=== PATIENT | female | born 1955 | race Caucasian/White ===

== ENCOUNTER 2017-08-24 23:21 | Inpatient (IN) | payer BC, OTHER ==
[~2017-08-24] VITALS: Ht 177.8 cm; Wt 88.5 kg
[2017-08-24 23:27] VITALS: BP 131/70
[2017-08-24] MEDS ORDERED: ATIVAN0.5 MG PO (23:33)
[2017-08-24] MEDS ORDERED: AMBIEN 5 MG TABL5 M1 PO (23:33)
[2017-08-24] MEDS ORDERED: ATENOLOL 25 MG25 M1 PO (23:33)
[2017-08-25 00:11] LABS: URINE BILIRUBIN NEGATIVE (Negative); URINE BLOOD 1+ (Negative); URINE COLOR YELLOW; URINE GLUCOSE-RANDOM* NEGATIVE (Negative); URINE KETONES NEGATIVE (Negative); URINE PROTEIN (DIPSTICK) NEGATIVE (Negative); URINE SPECIFIC GRAVITY <= 1.005 (1.005-1.035); URINE UROBILINOGEN 0.2 E.U./dl (0.2-1.0)
[2017-08-25 00:12] LABS: URINE LEUKOCYTES-REFLEX TRACE (Negative)
[2017-08-25 00:17] LABS: CASTS None Seen /LPF (None Seen); SQUAMOUS None Seen /LPF (0-3); URINE WBC-REFLEX None Seen /HPF (0-5)
[2017-08-25 00:18] LABS: CRYSTALS None Seen /LPF (None Seen); URINE RBC 0-2 Rare /HPF (0-2)
[2017-08-25 00:44] LABS: HEMATOCRIT 44.8 % (37.0-47.0); HEMOGLOBIN 15.2 gm/dL (12.0-15.0); MCH 29.8 pg (26.0-34.0); MCHC 33.9 g/dL (28.0-37.0); MCV 87.9 fL (80.0-100.0); RBC 5.09 mil/uL (4.20-5.00); RDW 13.1 % (10.5-14.5); WBC 9.7 thou/uL (4.0-11.0)
[2017-08-25 00:56] LABS: CALCIUM 9.8 mg/dL (8.5-10.1); CREATININE 1.3 mg/dL (0.6-1.0); POTASSIUM 3.9 mmol/L (3.5-5.1)
[2017-08-25 01:01] LABS: ALBUMIN 3.8 g/dL (3.4-5.0); TOTAL BILIRUBIN 1.1 mg/dL (<0.1-1.0); TOTAL PROTEIN 7.7 g/dL (6.4-8.2)
[2017-08-25 02:29] VITALS: BP 114/71
[2017-08-25 04:02] VITALS: BP 132/75
[2017-08-25 07:22] VITALS: BP 103/59
[2017-08-25 16:37] VITALS: BP 111/68
[2017-08-25 20:00] VITALS: BP 109/58
[2017-08-26 04:04] LABS: ALBUMIN 3.2 g/dL (3.4-5.0); CALCIUM 9.2 mg/dL (8.5-10.1); CREATININE 1.2 mg/dL (0.6-1.0); PHOSPHORUS 2.7 mg/dL (2.5-4.9); POTASSIUM 4.2 mmol/L (3.5-5.1)
[2017-08-26 04:22] LABS: HEMATOCRIT 40.4 % (37.0-47.0); HEMOGLOBIN 13.8 gm/dL (12.0-15.0); MCH 30.3 pg (26.0-34.0); MCHC 34.2 g/dL (28.0-37.0); MCV 88.7 fL (80.0-100.0); RBC 4.55 mil/uL (4.20-5.00); RDW 13.2 % (10.5-14.5); WBC 9.9 thou/uL (4.0-11.0)
[2017-08-26 05:38] VITALS: BP 98/56
[2017-08-26 08:00] VITALS: BP 114/57
[2017-08-26 16:00] VITALS: BP 136/68
[2017-08-26 20:19] VITALS: BP 120/61
[2017-08-27 04:37] VITALS: BP 122/73
[2017-08-27 08:20] VITALS: BP 151/81
[2017-08-27 08:57] LABS: HEMATOCRIT 40.1 % (37.0-47.0); HEMOGLOBIN 13.5 gm/dL (12.0-15.0)
[2017-08-27] MEDS ORDERED: LEVAQUIN 500 M500 M2 PO (12:24)
[2017-08-27] MEDS ORDERED: FLAGYL500 MG PO (12:25)
[2017-08-27 17:34] VITALS: BP 137/80
[2017-08-27 19:22] VITALS: BP 147/75
[2017-08-28 04:40] VITALS: BP 134/69
[2017-08-28 08:00] VITALS: BP 131/70
[2017-08-28 08:33] LABS: HEMOGLOBIN 13.5 gm/dL (12.0-15.0); MCH 29.6 pg (26.0-34.0); MCHC 33.6 g/dL (28.0-37.0); MCV 88.1 fL (80.0-100.0); RBC 4.54 mil/uL (4.20-5.00); RDW 12.7 % (10.5-14.5); WBC 4.7 thou/uL (4.0-11.0)
[2017-08-28 14:15] VITALS: BP 131/70
== END 2017-08-28 15:00 | disposition home or self-care (01) | DRG 392 ==
LOC: ER 23:21 → EROBS 08-25 02:19 → 4S 08-25 02:19 → ENTRNSPT 08-28 14:52 → EDTRNSPTSTS 08-28 14:55 → 4S 08-28 15:00
PROVIDERS: Emergency Medicine; Hospitalist; Internal Medicine Gastroenterology; Nurse Practitioner Family
DX: K57.20 Diverticulitis of large intestine with perforation and abscess without bleeding (principal); N17.9 Acute kidney failure, unspecified; F32.9 Major depressive disorder, single episode, unspecified; K59.00 Constipation, unspecified; I10 Essential (primary) hypertension; F90.9 Attention-deficit hyperactivity disorder, unspecified type; E66.9 Obesity, unspecified; Z68.28 Body mass index [BMI] 28.0-28.9, adult; Z90.710 Acquired absence of both cervix and uterus; Z88.0 Allergy status to penicillin; Z91.018 Allergy to other foods; Z91.040 Latex allergy status
CPT/HCPCS: 10102